=== PATIENT | female | born 1955 | race Two or more races ===

== ENCOUNTER → 2017-08-24 | Outpatient (CLI) | payer OTHER ==
[~2017-08-24] MED LIST: CELEBREX50 MG; LIPITOR20 MG PO; NEURONTIN300 MG; PAXIL20 MG; TEGRETOL XR100 MG
== END | disposition home or self-care (01) ==
LOC: PPH VACUNA 14:47
DX: Z23 Encounter for immunization (principal)

== ENCOUNTER 2017-11-22 16:53 | Emergency (ER) | payer OTHER ==
[~2017-11-22] VITALS: Ht 157.5 cm; Wt 61.2 kg
== END 2017-11-22 18:59 | disposition home or self-care (01) ==
LOC: ER 16:53
DX: M54.5 Low back pain (principal)

== ENCOUNTER 2018-03-15 09:47 | Outpatient (CLI) | payer OTHER | END 2018-03-15 09:50 | disposition home or self-care (01) | LOC: RX STUDY 09:47 | DX: R13.14 Dysphagia, pharyngoesophageal phase (principal) ==

== ENCOUNTER 2019-01-07 09:31 | Outpatient (CLI) | payer OTHER ==
[~2019-01-07] VITALS: Ht 152.4 cm; Wt 61.2 kg
== END 2019-01-07 09:45 | disposition home or self-care (01) ==
LOC: OFIC 805 09:31
DX: J31.0 Chronic rhinitis (principal); M26.69 Other specified disorders of temporomandibular joint; H60.8X3 Other otitis externa, bilateral; G44.89 Other headache syndrome; J32.8 Other chronic sinusitis

== ENCOUNTER 2020-08-27 14:13 | Outpatient (CLI) | payer OTHER | END 2020-08-27 15:20 | disposition home or self-care (01) | LOC: RAD 14:13 → MAMO-SONO 14:45 → RAD 15:20 | PROVIDERS: ATTEND Internal Medicine | DX: Z12.31 Encounter for screening mammogram for malignant neoplasm of breast (principal); N60.11 Diffuse cystic mastopathy of right breast; N60.12 Diffuse cystic mastopathy of left breast; D25.0 Submucous leiomyoma of uterus; M25.551 Pain in right hip; M25.552 Pain in left hip; M54.5 Low back pain; Z87.798 Personal history of other (corrected) congenital malformations; R92.0 Mammographic microcalcification found on diagnostic imaging of breast ==

== ENCOUNTER 2020-09-03 08:07 | Outpatient (CLI) | payer OTHER | END 2020-09-03 08:30 | disposition home or self-care (01) | LOC: MRI 08:07 | PROVIDERS: ATTEND Internal Medicine | DX: D25.0 Submucous leiomyoma of uterus (principal); N94.89 Other specified conditions associated with female genital organs and menstrual cycle | CPT/HCPCS: 72197; A9575; 72196 ==

== ENCOUNTER 2024-06-01 13:35 | Inpatient (IN) | payer OTHER ==
[~2024-06-01] VITALS: Ht 157.5 cm; Wt 61.2 kg
[~2024-06-01 13:35] MED LIST changes: +EVISTA60 MG PO; +FAMOTIDINE20 MG; +PANTOPRAZOLE SO40 MG; +VALACYCLOVIR1000 MG; +VITAMIN D31250 MCG
[2024-06-01] MEDS ORDERED: LIPITOR40 M1 PO (15:03)
[2024-06-01] MEDS ORDERED: METHYLPREDNISOLONE SOD SUCC 125 MG VIAL IV ONE (15:45)
[2024-06-01] MEDS ORDERED: IPRATROPIUM/ALBUTEROL SULFATE 3 ML AMPUL.NEB IH SCH (15:45)
[2024-06-01] MEDS ORDERED: GUAIFENESIN/DEXTROMETHORPHAN 10ML BLIST.PACK PO ONE ×2 (15:45→16:02)
[2024-06-01] MEDS ORDERED: METHYLPREDNISOLONE SOD SUCC 125 MG VIAL ONE (16:01)
[2024-06-01 17:07] LABS: HEMATOCRIT 25.1 % (36.0-45.00); MEAN CELL VOLUME 88.8 fL (80.00-100.00); MEAN CORPUSCULAR HGB CONC 35.2 g/dl (32.0-36.0); RED BLOOD COUNT 2.82 M/uL (4.00-6.00); RED CELL DISTRIBUTION WIDTH 18.3 % (11.5-14.5)
[2024-06-01 17:08] LABS: MEAN CORPUSCULAR HEMOGLOBIN 31.2 pg (27.00-32.0)
[2024-06-01 17:11] LABS: HEMOGLOBIN 8.8 g/dL (12.0-15.00); PLATELET COUNT 37 K/uL (150-450)
[2024-06-01 17:23] LABS: ALBUMIN 3.7 gm/dL (3.4-5.0); BILIRUBIN TOTAL 0.51 mg/dL (0.3-1.2); CALCIUM 8.9 mg/dL (8.5-10.1); CREATININE SERUM 0.76 mg/dL (0.55-1.02); GFR 75.68; GLOBULINA 2.9 G/DL (2.4-3.5); POTASSIUM 4.27 mEq/L (3.5-5.1); TOTAL PROTEIN 6.6 gm/dL (6.4-8.2)
[2024-06-01 17:41] LABS: PH,URINE 8.5 (5.0-8.0); URINE APPEARANCE Cloudy; URINE BILIRRUBIN Negative (NEGATIVE); URINE BLOOD Negative; URINE COLOR Yellow; URINE GLUCOSE Negative (NEGATIVE); URINE KETONE Negative (NEGATIVE); URINE LEUKOCYTE Negative; URINE NITRATE Negative; URINE PROTEIN Negative (NEGATIVE); URINE UROBILINOGEN 0.2 E.U./dl
[2024-06-01 17:47] LABS: URINE RBC 3.2 uL (0.0-20.8); URINE WBC 2.3 uL (0.0-23.2)
[2024-06-01 17:50] LABS: URINE BACTERIA 2.4 uL (0.0-1933); URINE CAST 0.58 uL (0.0-1.40); URINE EPITHELIAL CELLS 1.2 uL (0.0-38.8)
[2024-06-01] MEDS ORDERED: CEFEPIME HCL 2,000 MG in 0.9 % SODIUM CHLORIDE 100 ML IV SCH (19:17)
[2024-06-01] MEDS ORDERED: 0.9 % SODIUM CHLORIDE 1,000 ML IV SCH (19:30)
[2024-06-01] MEDS ORDERED: ACETAMINOPHEN 500 MG GEL..CAP PO PRN (19:30)
[2024-06-01] MEDS ORDERED: GUAIFEN/DEXTROMETHORPHAN/PE 10 ML BLIST.PACK PO SCH (21:00)
[2024-06-01 22:51] LABS: INR 1.03; PARTIAL THROMBOPLASTIN TIME 26.1 SECONDS (22.0-34.0); PROTHROMBIN TIME 11.2 SECONDS (9.0-11.5)
[2024-06-01 23:18] LABS: ABG PH 7.469 (7.35-7.45); ABG PO2 83.8 mmHg (80-100); ABG pCO2 33.1 mmHg (35-45); BASE EXCESS 0.5 mmol/l; BICARBONATE 23.4 mmol/l (23-25)
[2024-06-01 23:19] LABS: Tco2 24.5 mmol/l; o2 21 %
[2024-06-01 23:20] LABS: allen test SATISFACTORY; puncture site RADIAL LEFT
[2024-06-01 23:54] VITALS: BP 123/72; O2SAT 98
[2024-06-02] MEDS ORDERED: IPRATROPIUM BROMIDE 0.5 MG/2.5 ML AMPUL.NEB IH SCH (01:00)
[2024-06-02 02:04] VITALS: BP 128/76; O2SAT 98
[2024-06-02 08:00] VITALS: BP 160/77; O2SAT 97
[2024-06-02] MEDS ORDERED: PANTOPRAZOLE SODIUM 40 MG/VIAL VIAL IV SCH (09:00)
[2024-06-02 16:00] VITALS: BP 106/51; O2SAT 96
[2024-06-02 17:16] LABS: MEAN CELL VOLUME 89.6 fL (80.00-100.00); MEAN CORPUSCULAR HGB CONC 35.1 g/dl (32.0-36.0); RED BLOOD COUNT 2.55 M/uL (4.00-6.00); RED CELL DISTRIBUTION WIDTH 18.8 % (11.5-14.5)
[2024-06-02 17:19] LABS: MEAN CORPUSCULAR HEMOGLOBIN 31.3 pg (27.00-32.0)
[2024-06-02 17:20] LABS: HEMATOCRIT 22.9 % (36.0-45.00); PLATELET COUNT 76 K/uL (150-450)
[2024-06-03] VITALS: BP 120/62; O2SAT 99
[2024-06-03 00:05] LABS: FERRITIN 798.7 NG/ML (8-252)
[2024-06-03 06:58] LABS: MEAN CORPUSCULAR HGB CONC 35.1 g/dl (32.0-36.0); RED BLOOD COUNT 2.81 M/uL (4.00-6.00); RED CELL DISTRIBUTION WIDTH 19.2 % (11.5-14.5)
[2024-06-03 07:00] LABS: MEAN CORPUSCULAR HEMOGLOBIN 31.3 pg (27.00-32.0)
[2024-06-03 07:01] LABS: HEMOGLOBIN 8.8 g/dL (12.0-15.00); PLATELET COUNT 70 K/uL (150-450)
[2024-06-03 07:41] LABS: MANUAL PLATELET COUNT 174
[2024-06-03 07:48] LABS: PLATELET ESTIMATE NORMAL (NORMAL)
[2024-06-03 08:00] VITALS: BP 108/63; O2SAT 98
[2024-06-03 08:29] LABS: MYCOPLASMA PNEUMONIAE IGM NON REACTIVE (NO REACTIVE)
[2024-06-03] MEDS ORDERED: CEFTRIAXONE SODIUM 2,000 MG VIAL IV SCH (09:00)
[2024-06-03 11:47] LABS: FOLIC ACID 18.98 ng/ml (4.78-20)
[2024-06-03] MEDS ORDERED: SOD FERRIC GLUC COMPLX/SUCROSE 62.5 MG in 0.9 % SODIUM CHLORIDE 50 ML IV SCH ×2 (13:55→17:00)
[2024-06-03] MEDS ORDERED: LIDOCAINE 5% 1 PATCH ADH. TOP STA (14:26)
[2024-06-03] MEDS ORDERED: TRAMADOL HCL 50 MG TABLET PO STA (14:27)
[2024-06-03 16:00] VITALS: BP 111/60; O2SAT 100
[2024-06-03] MEDS ORDERED: TRAMADOL HCL 50 MG TABLET PO SCH (17:00)
[2024-06-03] MEDS ORDERED: LIDOCAINE 5% 1 PATCH ADH. TOP SCH (17:00)
[2024-06-04 01:07] VITALS: BP 143/73; O2SAT 100
[2024-06-04 08:00] VITALS: BP 104/67; O2SAT 96
[2024-06-04 09:40] LABS: MEAN CELL VOLUME 89.3 fL (80.00-100.00); RED CELL DISTRIBUTION WIDTH 18.5 % (11.5-14.5)
[2024-06-04 10:49] LABS: MEAN CORPUSCULAR HEMOGLOBIN 31.2 pg (27.00-32.0)
[2024-06-04 10:51] LABS: HEMATOCRIT 22.4 % (36.0-45.00); PLATELET COUNT 54 K/uL (150-450)
[2024-06-04 10:53] LABS: HEMOGLOBIN 7.8 g/dL (12.0-15.00)
[2024-06-04] MEDS ORDERED: FUROsemide 20 MG/2 ML VIAL IV PRN (11:00)
[2024-06-04 16:28] VITALS: BP 119/74; O2SAT 95
[2024-06-05 00:28] VITALS: BP 137/83; O2SAT 98
[2024-06-05 03:16] LABS: HEMATOCRIT 34.8 % (36.0-45.00); HEMOGLOBIN 11.9 g/dL (12.0-15.00); MEAN CELL VOLUME 88.9 fL (80.00-100.00); MEAN CORPUSCULAR HEMOGLOBIN 30.4 pg (27.00-32.0); MEAN CORPUSCULAR HGB CONC 34.2 g/dl (32.0-36.0); RED BLOOD COUNT 3.91 M/uL (4.00-6.00); RED CELL DISTRIBUTION WIDTH 15.5 % (11.5-14.5)
[2024-06-05 04:19] LABS: PLATELET COUNT 39 K/uL (150-450)
[2024-06-05 08:00] VITALS: BP 139/81; O2SAT 97
[2024-06-05 16:18] VITALS: BP 126/86; O2SAT 95
[2024-06-05 16:20] VITALS: BP 126/86; O2SAT 95
[2024-06-06 00:25] VITALS: BP 124/79; O2SAT 97
[2024-06-06 10:24] VITALS: BP 116/61; O2SAT 96
[2024-06-06 10:37] LABS: HEMATOCRIT 34.1 % (36.0-45.00); HEMOGLOBIN 11.9 g/dL (12.0-15.00); MEAN CELL VOLUME 87.5 fL (80.00-100.00); MEAN CORPUSCULAR HEMOGLOBIN 30.5 pg (27.00-32.0); MEAN CORPUSCULAR HGB CONC 34.9 g/dl (32.0-36.0); RED CELL DISTRIBUTION WIDTH 16.3 % (11.5-14.5)
[2024-06-06 10:38] LABS: PLATELET COUNT 31 K/uL (150-450)
[2024-06-06 16:55] VITALS: BP 122/84; O2SAT 94
[2024-06-07 01:25] VITALS: BP 150/83; O2SAT 98
[2024-06-07 06:56] LABS: HEMATOCRIT 31.7 % (36.0-45.00); MEAN CELL VOLUME 88.6 fL (80.00-100.00); MEAN CORPUSCULAR HEMOGLOBIN 30.7 pg (27.00-32.0); MEAN CORPUSCULAR HGB CONC 34.6 g/dl (32.0-36.0); RED BLOOD COUNT 3.57 M/uL (4.00-6.00); RED CELL DISTRIBUTION WIDTH 16.7 % (11.5-14.5)
[2024-06-07 07:29] LABS: ALBUMIN 3.2 gm/dL (3.4-5.0); BILIRUBIN TOTAL 0.42 mg/dL (0.3-1.2); CALCIUM 8.9 mg/dL (8.5-10.1); CREATININE SERUM 0.63 mg/dL (0.55-1.02); GFR 93.97; GLOBULINA 2.7 G/DL (2.4-3.5); POTASSIUM 3.84 mEq/L (3.5-5.1); TOTAL PROTEIN 5.9 gm/dL (6.4-8.2)
[2024-06-07 07:47] LABS: PLATELET COUNT 25 K/uL (150-450)
[2024-06-07 08:38] VITALS: BP 111/75; O2SAT 95
[2024-06-07] MEDS ORDERED: TRAMADOL HCL 50 MG TABLET PO PRN (12:00)
[2024-06-07] MEDS ORDERED: DEXAMETHASONE SODIUM PHOSP/PF 10 MG/ML VIAL IV SCH (12:00)
[2024-06-07] MEDS ORDERED: FAMOTIDINE/PF 20 MG/2 ML VIAL IV SCH (12:20)
[2024-06-07 16:00] VITALS: BP 160/79; O2SAT 98
[2024-06-07] MEDS ORDERED: LIDOCAINE 1 EACH ADH..PATCH TOP SCH (17:00)
[2024-06-08 00:10] VITALS: BP 122/79; O2SAT 98
[2024-06-08 07:54] LABS: HEMATOCRIT 31.6 % (36.0-45.00); MEAN CELL VOLUME 88.2 fL (80.00-100.00); MEAN CORPUSCULAR HEMOGLOBIN 30.9 pg (27.00-32.0); RED BLOOD COUNT 3.58 M/uL (4.00-6.00); RED CELL DISTRIBUTION WIDTH 15.9 % (11.5-14.5)
[2024-06-08 08:00] VITALS: BP 141/88; O2SAT 97
[2024-06-08 08:08] LABS: PLATELET COUNT 65 K/uL (150-450)
[2024-06-08 16:00] VITALS: BP 113/59; O2SAT 95
[2024-06-09 01:34] VITALS: BP 124/78; O2SAT 97
[2024-06-09 06:57] LABS: HEMATOCRIT 30.3 % (36.0-45.00); HEMOGLOBIN 10.5 g/dL (12.0-15.00); MEAN CELL VOLUME 89.1 fL (80.00-100.00); MEAN CORPUSCULAR HGB CONC 34.8 g/dl (32.0-36.0); RED CELL DISTRIBUTION WIDTH 16.5 % (11.5-14.5)
[2024-06-09 07:17] LABS: PLATELET COUNT 39 K/uL (150-450)
[2024-06-09 09:31] VITALS: BP 127/58; O2SAT 98
[2024-06-09] MEDS ORDERED: FLUCONAZOLE IN NACL,ISO-OSM 200 MG/100 ML PIGGYBAG IV NR (15:00)
[2024-06-09 16:05] VITALS: BP 117/68; O2SAT 97
[2024-06-10] VITALS: BP 120/79; O2SAT 95
[2024-06-10 06:34] LABS: HEMATOCRIT 32.3 % (36.0-45.00); MEAN CELL VOLUME 89.4 fL (80.00-100.00); MEAN CORPUSCULAR HEMOGLOBIN 30.4 pg (27.00-32.0); RED BLOOD COUNT 3.61 M/uL (4.00-6.00); RED CELL DISTRIBUTION WIDTH 16.4 % (11.5-14.5)
[2024-06-10 06:46] LABS: PLATELET COUNT 38 K/uL (150-450)
[2024-06-10 08:00] VITALS: BP 148/80; BP 174/77; O2SAT 97; O2SAT 98
[2024-06-10] MEDS ORDERED: FLUCONAZOLE IN NACL,ISO-OSM 2 MG/ML ML IV SCH (12:00)
[2024-06-10 16:10] VITALS: BP 114/57; O2SAT 95
[2024-06-11 08:00] VITALS: BP 107/69; O2SAT 95
[2024-06-11 14:23] LABS: HEMATOCRIT 31.3 % (36.0-45.00); HEMOGLOBIN 10.6 g/dL (12.0-15.00); MEAN CORPUSCULAR HEMOGLOBIN 30.4 pg (27.00-32.0); MEAN CORPUSCULAR HGB CONC 33.8 g/dl (32.0-36.0); PLATELET COUNT 36 K/uL (150-450); RED BLOOD COUNT 3.48 M/uL (4.00-6.00); RED CELL DISTRIBUTION WIDTH 16.1 % (11.5-14.5)
[2024-06-11] MEDS ORDERED: CEFTRIAXONE SODIUM 2,000 MG VIAL IV NR (14:30)
[2024-06-11 16:45] VITALS: BP 114/58; O2SAT 95
[2024-06-12] VITALS: BP 117/53; O2SAT 95
[2024-06-12 08:00] VITALS: BP 116/70; O2SAT 96; O2SAT 97
[2024-06-12 08:05] LABS: ALBUMIN 3.2 gm/dL (3.4-5.0); BILIRUBIN TOTAL 0.59 mg/dL (0.3-1.2); CALCIUM 9.1 mg/dL (8.5-10.1); CREATININE SERUM 0.71 mg/dL (0.55-1.02); GFR 81.86; GLOBULINA 2.7 G/DL (2.4-3.5); POTASSIUM 3.84 mEq/L (3.5-5.1); TOTAL PROTEIN 5.9 gm/dL (6.4-8.2)
[2024-06-12 08:16] LABS: HEMATOCRIT 30.2 % (36.0-45.00); HEMOGLOBIN 10.4 g/dL (12.0-15.00); MEAN CELL VOLUME 89.5 fL (80.00-100.00); MEAN CORPUSCULAR HGB CONC 34.6 g/dl (32.0-36.0); RED BLOOD COUNT 3.37 M/uL (4.00-6.00); RED CELL DISTRIBUTION WIDTH 16.4 % (11.5-14.5)
[2024-06-12 08:19] LABS: PLATELET COUNT 33 K/uL (150-450)
[2024-06-12 16:00] VITALS: BP 119/59; O2SAT 96
[2024-06-12] MEDS ORDERED: CEFTRIAXONE SODIUM 2,000 MG VIAL IV SCH (17:00)
[2024-06-13 01:02] VITALS: BP 130/61; O2SAT 97
[2024-06-13 14:57] LABS: MEAN CELL VOLUME 90.3 fL (80.00-100.00); MEAN CORPUSCULAR HEMOGLOBIN 30.9 pg (27.00-32.0); MEAN CORPUSCULAR HGB CONC 34.2 g/dl (32.0-36.0); PLATELET COUNT 31 K/uL (150-450); RED BLOOD COUNT 3.87 M/uL (4.00-6.00)
[2024-06-14 07:14] LABS: HEMATOCRIT 31.2 % (36.0-45.00); HEMOGLOBIN 10.7 g/dL (12.0-15.00); MEAN CELL VOLUME 90.1 fL (80.00-100.00); MEAN CORPUSCULAR HEMOGLOBIN 31.1 pg (27.00-32.0); MEAN CORPUSCULAR HGB CONC 34.5 g/dl (32.0-36.0); RED BLOOD COUNT 3.46 M/uL (4.00-6.00); RED CELL DISTRIBUTION WIDTH 17.2 % (11.5-14.5)
[2024-06-14 08:39] LABS: PLATELET COUNT 26 K/uL (150-450)
== END 2024-06-14 09:54 | disposition designated cancer center or children's hospital (05) | DRG 835 ==
LOC: ER 13:37 → SURH 19:44
PROVIDERS: General Practice; Internal Medicine Hematology & Oncology; Internal Medicine Infectious Disease; ADMIT Specialist; ATTEND Specialist
PROC: B020ZZZ Computerized Tomography (CT Scan) of Brain (ICD-10-PCS; 2024-06-01)
PROC: BW21YZZ Computerized Tomography (CT Scan) of Abdomen and Pelvis using Other Contrast (ICD-10-PCS; 2024-06-02)
PROC: 3E0F7GC Introduction of Other Therapeutic Substance into Respiratory Tract, Via Natural or Artificial Opening (ICD-10-PCS; 2024-06-02)
PROC: 30233R1 Transfusion of Nonautologous Platelets into Peripheral Vein, Percutaneous Approach (ICD-10-PCS; 2024-06-02)
PROC: BB24ZZZ Computerized Tomography (CT Scan) of Bilateral Lungs (ICD-10-PCS; 2024-06-04)
PROC: 30233N1 Transfusion of Nonautologous Red Blood Cells into Peripheral Vein, Percutaneous Approach (ICD-10-PCS; 2024-06-04)
PROC: 079T3ZX Drainage of Bone Marrow, Percutaneous Approach, Diagnostic (ICD-10-PCS; principal; 2024-06-06)
PROC: 02HV33Z Insertion of Infusion Device into Superior Vena Cava, Percutaneous Approach (ICD-10-PCS; 2024-06-12)
PROC: B020ZZZ Computerized Tomography (CT Scan) of Brain (ICD-10-PCS; 2024-06-13)
PROC: BR27ZZZ Computerized Tomography (CT Scan) of Thoracic Spine (ICD-10-PCS; 2024-06-13)
DX: C91.00 Acute lymphoblastic leukemia not having achieved remission (principal); D61.818 Other pancytopenia; S32.010A Wedge compression fracture of first lumbar vertebra, initial encounter for closed fracture; D69.6 Thrombocytopenia, unspecified; D64.89 Other specified anemias; D70.8 Other neutropenia; B34.9 Viral infection, unspecified; J45.998 Other asthma